=== PATIENT | female | born 1995 ===

== ENCOUNTER 2017-08-27 13:47 | Emergency (ER) | payer MEDICAID ==
[2017-08-27 13:51] VITALS: BMI 18.3
[2017-08-27 13:54] VITALS: BP 97/61; PULSE 66; RESP 18; TEMP 98.6; O2SAT 99
[2017-08-27] MEDS ORDERED: Naproxen 550 mg Tab PO STA (14:12)
[2017-08-27] MEDS ORDERED: Naproxen 550 mg Tab PO ONE (14:21)
--- NOTE | 2017-08-27 14:24 | C.PDOC ---
History Of Present Illness 21 y/o female presents to the ED complaining of left posterior shoulder pain. Patient reports having a chronic cyst in the area for approx 4 years, and has a scheduled surgical appointment on September 09 for removal. She states that she moved her left arm/shoulder in a certain way, and has been having increased pain for 2 days. Patient took ibuprofen without relief. She denies numbness, weakness, fever, chills, drainage. Time Seen by Provider: 08/27/17 13:49 Chief Complaint (Nursing): Upper Extremity Problem/Injury History Per: Patient History/Exam Limitations: no limitations Onset/Duration Of Symptoms: Days Current Symptoms Are (Timing): Still Present Quality: "Pain" Severity: Mild Exacerbating Factor(s): Movement Past Medical History Reviewed: Historical Data, Nursing Documentation, Vital Signs Vital Signs: Last Vital Signs Temp 98.6 F 08/27/17 13:51 Pulse 66 08/27/17 13:51 Resp 18 08/27/17 13:51 BP 97/61 L 08/27/17 13:51 Pulse Ox 99 08/27/17 15:39 - Medical History PMH: No Chronic Diseases Other Surgeries: Surgical intervention for ectopic Family History: States: No Known Family Hx - Social History Hx Alcohol Use: Yes Hx Substance Use: No - Immunization History Hx Tetanus Toxoid Vaccination: No Hx Influenza Vaccination: No Hx Pneumococcal Vaccination: No Review Of Systems Constitutional: Negative for: Fever, Chills Cardiovascular: Negative for: Chest Pain Respiratory: Negative for: Shortness of Breath Musculoskeletal: Positive for: Shoulder Pain Skin: Positive for: Other (cyst to left shoulder) Neurological: Negative for: Weakness, Numbness Physical Exam - Physical Exam Appears: Well, Non-toxic, Other (Mildly uncomfortable) Skin: Warm, Dry, Other (Left posterior shoulder above spine of scapula: approx 2 cm cyst, TTP, with no fluctuance, induration, or erythema) Head: Atraumatic, Normacephalic Eye(s): bilateral: Normal Inspection Neck: Normal, Normal ROM, No Midline Cervical Tenderness, No Paracervical Tenderness, No Step Off Deformity, Supple Cardiovascular: Rhythm Regular Respiratory: Normal Breath Sounds, No Accessory Muscle Use, No Rales, No Rhonchi , No Wheezing Extremity: Normal ROM (with FROM of left shoulder), Capillary Refill (< 2 sec all digits ), No Deformity Pulses: Left Radial: Normal, Right Radial: Normal Neurological/Psych: Oriented x3, Normal Motor, Normal Sensation ED Course And Treatment O2 Sat by Pulse Oximetry: 99 (RA) Pulse Ox Interpretation: Normal Progress Note: Patient given PO Naprosyn and Flexeril + Lidoderm patch. She was given Rxs for Naproxen, Flexeril, and instructed to keep her surgical appointment as scheduled. She understands she should return to ED if symptoms worsen. Reevaluation Time: 14:25 Reassessment Condition: Improved Disposition Counseled Patient/Family Regarding: Diagnosis, Need For Followup, Rx Given - Disposition Referrals: [facility] [Outside] Disposition: HOME/ ROUTINE Disposition Time: 14:25 Condition: STABLE Additional Instructions: SEGUIMIENTO CON NEVAREZ MDICO O CLNICA EN 1-2 DAWKINS SEGUIMIENTO CON NEVAREZ CIRUJANO PARA LA REMOCIN DE CYST USE MEDICAMENTOS SEGN SEA NECESARIO REGRESE AL LORNA DE EMERGENCIA SI LOS SNTOMAS EMPEORAN Prescriptions: Cyclobenzaprine [Flexeril] 10 mg PO BID PRN #15 tab PRN Reason: Muscle Spasm Naproxen [Naprosyn] 1 tab PO BID PRN #25 tab PRN Reason: Pain Instructions: Muscle and Bone Pain (DC) Forms: [facility] (Lithuanian), Work Excuse Print Language: URUGUAYAN - POA Present On Arrival: None - Clinical Impression Clinical Impression: Muscle pain, Subcutaneous cyst - Scribe Statement The provider has reviewed the documentation as recorded by the Scribe (Kim Caal) Provider Attestation: All medical record entries made by the Scribe were at my direction and personally dictated by me. I have reviewed the chart and agree that the record accurately reflects my personal performance of the history, physical exam, medical decision making, and the department course for this patient. I have also personally directed, reviewed, and agree with the discharge instructions and disposition.
[2017-08-27] MEDS ORDERED: Lidocaine 5% Patch TD STA (14:29)
[2017-08-27] MEDS ORDERED: Lidocaine 5% Patch TD ONE (14:40)
== END 2017-08-27 14:42 | disposition home or self-care (01) ==
LOC: C.ER 13:47
DX: M79.1 Myalgia (principal); L72.9 Follicular cyst of the skin and subcutaneous tissue, unspecified